=== PATIENT | female | born 1995 | race Caucasian/White ===

== ENCOUNTER 2018-08-04 14:50 | Emergency (ER) | payer OTHER ==
[2018-08-04 15:01] VITALS: BP 108/63; PULSE 78; TEMP 98.5; BMI 25.8
--- NOTE | 2018-08-04 15:11 | PDOC ---
History of Present Illness - General Chief Complaint: Injury Stated Complaint: TWISTED ANKLE Time Seen by Provider: 08/04/18 15:02 History Source: Patient Exam Limitations: No Limitations - History of Present Illness Initial Comments: 08/04/18 15:15 23 yr female with c/o right ankle injury walking down the stairs today no swelling. pain to the lateral left ankle. Past History - Travel Traveled outside of the country in the last 30 days: No Close contact w/someone who was outside of country & ill: No - Past Medical History Allergies/Adverse Reactions: Allergies Allergy/AdvReac Type Severity Reaction Status Date / Time No Known Allergies Allergy Verified 08/04/18 14:58 Home Medications: Ambulatory Orders NK [No Known Home Medication] 08/04/18 COPD: No CHF: No - Suicide/Smoking/Psychosocial Hx Smoking History: Never smoked Have you smoked in the past 12 months: No Number of Cigarettes Smoked Daily: 20 Information on smoking cessation initiated: No Hx Alcohol Use: No Drug/Substance Use Hx: No Substance Use Type: Alcohol, Marijuana Review of Systems - Review of Systems Able to Perform ROS?: Yes Is the patient limited [place] proficient: No Musculoskeletal: Yes: Symptoms Reported *Physical Exam - Vital Signs Last Vital Signs Temp Pulse Resp BP Pulse Ox 98.5 F 78 16 108/63 100 08/04/18 14:55 08/04/18 14:55 08/04/18 14:55 08/04/18 14:55 08/04/18 14:55 - Physical Exam General Appearance: Yes: Nourished, Appropriately Dressed HEENT: positive: EOMI, MIGEL Musculoskeletal: positive: Normal Inspection Extremity: positive: Normal Capillary Refill, Tender (right ankle lateral maleolus, nv intact FROM , mild swelling laterally ) Integumentary: positive: Normal Color, Dry, Warm Procedures - Splinting Pre-Made Type: aircast (crutches and aircast) *DC/Admit/Observation/Transfer Diagnosis at time of Disposition: Ankle sprain Qualifiers: Encounter type: initial encounter Involved ligament of ankle: unspecified ligament Laterality: right Qualified Code(s): S93.401A - Sprain of unspecified ligament of right ankle, initial encounter - Discharge Dispostion Disposition: HOME Condition at time of disposition: Good - Referrals Referrals: Jatin Rees MD [Staff Physician] - - Patient Instructions Printed Discharge Instructions: DI for Ankle Sprain Additional Instructions: elevate and apply ice every 2hrs for 20 minutes take ibuprofen for pain as needed use crutches and air cast splint as tolerated follow with the orthopedist for follow up next week - Post Discharge Activity Forms/Work/School Notes: Back to Work
== END 2018-08-04 15:56 | disposition home or self-care (01) ==
LOC: JERFT 14:50 → JER 14:50 → JERFT 15:56
PROC: 2W3QX1Z Immobilization of Right Lower Leg using Splint (ICD-10-PCS; principal; 2018-08-04)
DX: S93.401A Sprain of unspecified ligament of right ankle, initial encounter (principal); X50.1XXA Overexertion from prolonged static or awkward postures, initial encounter; Y93.89 Activity, other specified; Y92.89 Other specified places as the place of occurrence of the external cause; Y99.8 Other external cause status
CPT/HCPCS: 29515; 73610-TC-RT-FY; 73630-TC-RT-FY; 99282-25